=== PATIENT | male | born 1980 | race Caucasian/White ===

== ENCOUNTER 2020-12-05 08:29 | Emergency (ER) | payer SELFPAY ==
--- NOTE | 2020-12-05 08:38 | ED.GENADULT ---
HPI - General Adult General Chief complaint: Extremity Injury, Upper Stated complaint: right hand pain Time Seen by Provider: 12/05/20 08:48 Source: patient and RN notes reviewed Mode of arrival: ambulatory Limitations: no limitations History of Present Illness HPI narrative: 40-year-old male with history of cardiomyopathy presents concern for right hand pain. Reports acute pain that began after his shower today. He reports a history of gout. He denies any injury or trauma to the hand. Reports pain begins at the base of the first digit and spreads from there. Reports some swelling and redness of the base of the first digit. He denies intervention. MD complaint: Hand pain Related Data Home Medications Medication Instructions Recorded Confirmed aspirin 81 mg PO DAILY 12/05/20 12/05/20 carvedilol [Coreg] 25 mg PO BID 12/05/20 12/05/20 furosemide [Lasix] 40 mg PO BID 12/05/20 12/05/20 lisinopril 20 mg PO DAILY 12/05/20 12/05/20 Allergies Allergy/AdvReac Type Severity Reaction Status Date / Time No Known Allergies Allergy Verified 12/05/20 08:48 Review of Systems Review of Systems: CONSTITUTIONAL: Denies malaise, chills, sweats, or fever. CARDIOVASCULAR: Denies chest pain, palpitations, or edema. RESPIRATORY: Denies cough or dyspnea. SKIN: Denies bruising, open skin, rash or itching. MUSCULOSKELETAL: Reports pain, swelling, redness at the base of the right first digit, swelling on digits 2 through 5 of the right hand NEUROLOGIC: Denies numbness, weakness All systems reviewed & are unremarkable except as noted in HPI and below PMFSH Comments At time of signature, agree with nursing past medical, surgical, social and family history. There is no relevant family history pertinent to the presenting complaint Exam Narrative: GENERAL: Well-appearing, well-nourished, and in no acute distress. HEAD: Normocephalic, atraumatic. EYES: PERRLA, conjunctivae clear NECK: Supple. CHEST: Speaks in full sentences. No respiratory distress. HEART: Regular rate and rhythm. Normal and equal peripheral pulses. EXTREMITIES: Right hand digits of right hand have normal strength and sensation, limited range of motion. Mild dorsal and digit edema with mild erythema, no ecchymosis. Normal sensation with sensitivity to light touch and pain. Generalized tenderness. No open wounds, no skin tenting, no devitalized tissue or atrophy, no trophic changes, no obvious deformity, alignment normal, nearby joints and structures intact. Distal pulses palpable and equal bilaterally, skin warm, dry, pink. Capillary refill less than 3 seconds. SKIN: Warm, dry, no rash. NEURO: Alert and oriented x3. PSYCH: Normal mood and affect Course Course Emergency Course: Patient is aware of diagnosis, understands and agrees to treatment plan. Anticipatory guidance given. Patient agrees to follow-up as directed and is aware of reasons to seek care at the emergency department. Portions of this record may have been created with voice recognition software Vital Signs Vital signs: Reviewed. Medical Decision Making MDM Narrative Medical decision making narrative: Patients pain is consistent with musculoskeletal etiology. No signs of neurological or vascular compromise on exam. Compartments and tissues are soft without signs of compartment syndrome. Pain is felt appropriate for further evaluation on an outpatient basis. Differential Diagnosis Differential Diagnosis: Gout, cellulitis, musculoskeletal injury Critical Care Time Critical Care Time Critical Care Time: No Discharge Plan Discharge Clinical Impression: Gout Qualifiers: Gout site: hand Gout etiology: idiopathic Chronicity: acute Laterality: right Qualified Code(s): M10.041 - Idiopathic gout, right hand Patient Disposition: Home, Self-Care Condition: Stable Instructions: Gout (ED) Additional Instructions: 1) Please follow-up with your primary care doctor in the next 1-2 days. 2) If you have any urg
[2020-12-05 08:40] VITALS: BP 124/80; PULSE 89; RESP 18; TEMP 36.2; O2SAT 100
== END 2020-12-05 09:00 | disposition home or self-care (01) ==
PROVIDERS: Emergency Provider Nurse Practitioner
DX: M10.041 Idiopathic gout, right hand (principal); I42.9 Cardiomyopathy, unspecified; Z79.82 Long term (current) use of aspirin; I11.0 Hypertensive heart disease with heart failure; I50.9 Heart failure, unspecified
CPT/HCPCS: 99203; G0463